=== PATIENT | male | born 1965 | race African-American/Black ===

== ENCOUNTER 2018-04-25 01:01 | Emergency (ER) | payer SELFPAY ==
[~2018-04-25] VITALS: Ht 172.7 cm; Wt 74.4 kg
[2018-04-25 05:41] VITALS: BP 128/82
[2018-04-25] MEDS ORDERED: IBUPROFEN 800 MG TAB PO ONE (05:45)
[2018-04-25] MEDS ORDERED: HYDROcodone-ACET 5/325MG TAB PO ONE (05:45)
== END 2018-04-25 06:11 | disposition home or self-care (01) ==
LOC: ER 01:08
DX: S83.91XA Sprain of unspecified site of right knee, initial encounter (principal); M23.91 Unspecified internal derangement of right knee; F17.210 Nicotine dependence, cigarettes, uncomplicated; X58.XXXA Exposure to other specified factors, initial encounter; Y93.89 Activity, other specified; Y92.89 Other specified places as the place of occurrence of the external cause; Y99.8 Other external cause status
CPT/HCPCS: 73560